=== PATIENT | male | born 2000 | race African-American/Black ===

== ENCOUNTER 2018-08-25 03:15 | Emergency (ER) | payer BC | END 2018-08-25 04:17 | disposition home or self-care (01) | LOC: ERS 03:15 | DX: H66.92 Otitis media, unspecified, left ear (principal); Z71.6 Tobacco abuse counseling; F17.210 Nicotine dependence, cigarettes, uncomplicated | CPT/HCPCS: 99406 ==

== ENCOUNTER 2020-03-15 00:36 | Emergency (ER) | payer BC | END 2020-03-15 00:55 | disposition home or self-care (01) | LOC: ERS 00:36 | DX: S09.21XA Traumatic rupture of right ear drum, initial encounter (principal) | CPT/HCPCS: 99282 ==